=== PATIENT | male | born 1950 | race Caucasian/White ===

== ENCOUNTER 2017-05-12 07:15 | Day surgery (SDC) | payer MEDICARE, MEDICAID ==
[2017-05-12] VITALS (8 sets, daily range): BP systolic 125–155; BP diastolic 31–74
[~2017-05-12] VITALS: Ht 177.8 cm; Wt 113.1 kg
[2017-05-12] MEDS ORDERED: diphenhydrAMINE 25mg capsule PO PRN (07:35)
[2017-05-12] MEDS ORDERED: normal saline 1000ml 1,000 ML IV SCH (07:35)
[2017-05-12 08:15] LABS: BASOPHILS # (AUTO) 0.1 X10'3 (0-0.2); BASOPHILS % (AUTO) 0.7 % (0-1); EOSINOPHILS # (AUTO) 0.4 X10'3 (0-0.9); EOSINOPHILS % (AUTO) 4.5 % (0-6); HEMATOCRIT 38.9 % (42.0-52.0); HEMOGLOBIN 13.3 g/dl (14.0-17.9); LYMPHOCYTES # (AUTO) 2.9 X10'3 (1.1-4.8); LYMPHOCYTES % (AUTO) 29.8 % (21-51); MEAN CORPUSCULAR HEMOGLOBIN 29.6 PG (27.0-31.0); MEAN CORPUSCULAR HGB CONC 34.1 % (33.0-36.5); MEAN CORPUSCULAR VOLUME 86.8 FL (78-98); MONOCYTES % (AUTO) 10.3 % (2-12); NEUTROPHILS # (AUTO) 5.3 X10'3 (1.8-7.7); NEUTROPHILS % (AUTO) 54.7 % (42-75); PLATELET COUNT 227 X10'3 (140-440); RED BLOOD COUNT 4.48 X10'6 (4.70-6.10); RED CELL DISTRIBUTION WIDTH 14.2 % (11.5-14.5); WHITE BLOOD COUNT 9.7 X10'3 (4.5-11.0)
[2017-05-12 08:30] LABS: ALBUMIN 3.5 G/DL (3.4-5.0); ANION GAP 8 (8-16); BLOOD UREA NITROGEN 17 MG/DL (7-18); BUN/CREATININE RATIO 13.8 (5.4-32.0); CHLORIDE 105 MMOL/L (99-107); CREATININE 1.23 MG/DL (0.60-1.10); GLUCOSE 173 MG/DL (70-104); MAGNESIUM 1.7 MG/DL (1.5-2.4); SODIUM 139 MMOL/L (135-145); TOTAL CARBON DIOXIDE 26.4 MMOL/L (24-32); eGFR 59 ML/MIN
[2017-05-12] MEDS ORDERED: iohexol 350MG/ML 100ml bottle IV ONE (09:01)
[2017-05-12] MEDS ORDERED: LIDOcaine 1%/PF (10mg/ml) 5ml vial ONE (09:01)
[2017-05-12] MEDS ORDERED: iohexol 350 MG/ML 50ML vial IV ONE (09:01)
[2017-05-12] MEDS ORDERED: ATOR40TA PO (09:11)
[2017-05-12] MEDS ORDERED: ALBU8HFA PO (09:11)
[2017-05-12] MEDS ORDERED: METO50TA7 PO (09:11)
[2017-05-12] MEDS ORDERED: ASPI-1264 PO (09:11)
[2017-05-12] MEDS ORDERED: ALB0.5UD IH (09:11)
[2017-05-12] MEDS ORDERED: midazolam 2 mg/2 ml injection ONE (09:15)
[2017-05-12] MEDS ORDERED: fentaNYL/PF 50MCG/1 ML 2ML syringe ONE (09:15)
== END 2017-05-12 13:00 | disposition home or self-care (01) ==
LOC: SSTAY O 07:15
PROVIDERS: ATTEND Internal Medicine Cardiovascular Disease
DX: I25.10 Atherosclerotic heart disease of native coronary artery without angina pectoris (principal); I10 Essential (primary) hypertension; E78.5 Hyperlipidemia, unspecified; J44.9 Chronic obstructive pulmonary disease, unspecified; M19.90 Unspecified osteoarthritis, unspecified site; E11.9 Type 2 diabetes mellitus without complications; K21.9 Gastro-esophageal reflux disease without esophagitis; Z90.49 Acquired absence of other specified parts of digestive tract; Z96.651 Presence of right artificial knee joint; Z98.890 Other specified postprocedural states; Z79.82 Long term (current) use of aspirin; Z87.891 Personal history of nicotine dependence; Z79.899 Other long term (current) drug therapy
CPT/HCPCS: 36415; 80048; 82948; 83735; 85025; 85610; 93458; 99152; 99153; A6257; C1769; C1894; J1644; J2001; J2250; J3010; J7030; Q0163; Q9967; A4620